=== PATIENT | female | born 1995 | race Caucasian/White ===

== ENCOUNTER → 2016-04-22 | Outpatient (CLI) | payer OTHER ==
[~2016-04-22] MED LIST: ACETAMINOPHEN-H1 TA2 PO; BIRTH CONTROL1 EAC1 PO; HYDROCODONE BIT1 T11 PO; NKHM PO; NORCO 325 MG-51 TAB PO; VYVANSE30 MG PO; ZOFRAN ODT4 MG SL
[2016-04-22 11:05] LABS: BASO % 0.1 % (0.0-1.0); EOS # 0.1 10*3/uL (0.0-0.4); EOS % 1.3 % (1.0-4.0); HEMATOCRIT 42.6 % (37.0-47.0); HEMOGLOBIN 13.8 g/dl (12.0-16.0); LYMPH # 1.2 10*3/uL (1.3-4.4); LYMPH % 17.1 % (27.0-41.0); MEAN CELL VOLUME 88.4 fl (81.0-99.0); MEAN CORPUSCULAR HGB 28.6 pg (27.0-31.0); MEAN CORPUSCULAR HGB CONC 32.4 g/dl (33.0-37.0); MONO # 0.5 10*3/uL (0.1-1.0); MONO % 7.4 % (3.0-9.0); NEUT # 5.3 10*3/uL (2.3-7.9); NEUT % 73.8 % (47.0-73.0); PLATELET COUNT AUTOMATED 194 10*3/uL (130-400); RED BLOOD COUNT 4.82 10*6/uL (4.10-5.10); RED CELL DISTRI WIDTH 12.6 % (0-14.5); WHITE BLOOD COUNT 7.1 10*3/uL (4.8-10.8)
[2016-04-22 11:39] LABS: ALKALINE PHOSPHATASE 72 U/L (45-117); BILIRUBIN, TOTAL 0.5 mg/dl (0.2-1.0); BUN 11 mg/dl (7-24); CARBON DIOXIDE 26 mmol/L (21-32); CHLORIDE 108 mmol/L (98-107); EST GLOM FILT AFRICAN AMERICAN > 60 ml/min; FREE T4 1.04 ng/dl (0.76-1.46); GLUCOSE 82 mg/dL (65-99); POTASSIUM 4.2 mmol/L (3.5-5.1); SGOT/AST 13 IU/L (3-35); SGPT/ALT 16 U/L (12-78); SODIUM 142 mmol/L (136-145); TOTAL PROTEIN 7.9 gm/dL (6.4-8.2)
== END | disposition home or self-care (01) ==
LOC: LAB 10:32
PROVIDERS: Psychiatry & Neurology Psychiatry
DX: D64.9 Anemia, unspecified (principal); F41.9 Anxiety disorder, unspecified; R53.83 Other fatigue; E55.9 Vitamin D deficiency, unspecified

== ENCOUNTER → 2016-06-16 | Day surgery (SDC) | payer OTHER ==
[2016-06-13 09:53] LABS: BASO % 0.2 % (0.0-1.0); EOS # 0.2 10*3/uL (0.0-0.4); EOS % 3.8 % (1.0-4.0); HEMATOCRIT 40.1 % (37.0-47.0); HEMOGLOBIN 13.1 g/dl (12.0-16.0); LYMPH % 35.5 % (27.0-41.0); MEAN CELL VOLUME 88.3 fl (81.0-99.0); MEAN CORPUSCULAR HGB 28.9 pg (27.0-31.0); MEAN CORPUSCULAR HGB CONC 32.7 g/dl (33.0-37.0); MEAN PLATELET VOLUME 10.2 fl (9.6-12.3); MONO # 0.4 10*3/uL (0.1-1.0); MONO % 7.7 % (3.0-9.0); NEUT # 2.9 10*3/uL (2.3-7.9); NEUT % 52.6 % (47.0-73.0); PLATELET COUNT AUTOMATED 179 10*3/uL (130-400); RED BLOOD COUNT 4.54 10*6/uL (4.10-5.10); RED CELL DISTRI WIDTH 12.8 % (0-14.5); WHITE BLOOD COUNT 5.5 10*3/uL (4.8-10.8)
[2016-06-13 10:15] LABS: BUN 10 mg/dl (7-24); CARBON DIOXIDE 25 mmol/L (21-32); CHLORIDE 109 mmol/L (98-107); EST GLOM FILT AFRICAN AMERICAN > 60 ml/min; GLUCOSE 74 mg/dL (65-99); POTASSIUM 3.7 mmol/L (3.5-5.1); SODIUM 144 mmol/L (136-145)
[2016-06-13 10:24] LABS: PROTHROMBIN TIME 10.7 SECONDS (9.0-12.4)
[~2016-06-16] VITALS: Ht 170.1 cm; Wt 59.0 kg
--- NOTE | ~2016-06-16 | O ---
[place], [place] OPERATIVE NOTE NAME: KEO RIVERS UNIT #: [id number] ROOM: DOCTOR: DAVID SAENZ MD BIRTHDATE: [birth year] DOS: 06/16/2016 PREOPERATIVE DIAGNOSIS: Pilonidal cyst. POSTOPERATIVE DIAGNOSIS: Pilonidal cyst. PROCEDURE: Excision of pilonidal cyst. SURGEON: David Saenz MD REEL WINDER: COBY. ANESTHESIA: General with endotracheal intubation. INDICATIONS: This is a 21-year-old lady with a history of symptomatic pilonidal cyst who was here for the above-mentioned procedure. The procedure and its complications were explained to the patient in detail preoperatively. Complications that were discussed included, but were not limited to bleeding, infection, hematoma/seroma/abscess formation, prolonged postoperative pain, and recurrence. She agreed to proceed. DESCRIPTION OF PROCEDURE: After identifying the patient, the patient was brought to the operating suite and laid in the supine position. After induction of general anesthesia, the parts were then painted and draped in the usual sterile fashion after the patient was put in a prone position. A time-out procedure was called. An incision in an elliptical fashion was marked around the area of the opening in the cyst. The skin and the subcutaneous tissue were incised and the entire cyst was excised, which was right up to the bone. After it was excised, it was sent for histopathological diagnosis. Hemostasis was achieved with the help of electrocautery and saline was used for irrigation. Thereafter, the subcutaneous tissue was approximated with the help of 3-0 Vicryl in an interrupted fashion and the skin edges were approximate with the help of 3-0 silk in a mattress fashion interrupted. A 1% lidocaine was used for local anesthesia. Dressing was placed. The patient was then turned in the supine position and extubated uneventfully and brought back to the recovery room in a stable fashion. There were no complications. Dr. David Saenz, the attending surgeon, was present throughout the operating case. [place], [place] OPERATIVE NOTE NAME: KEO RIVERS UNIT #: [id number] ROOM: DOCTOR: DAVID SAENZ MD BIRTHDATE: [birth year] David Saenz MD CM:IGNACIAORD:OPERATIVE NOTE [id number] DAVID SAENZ MD 06/16/16 1043 interface
[2016-06-16 07:41] LABS: BASO % 0.2 % (0.0-1.0); EOS # 0.2 10*3/uL (0.0-0.4); EOS % 2.4 % (1.0-4.0); HEMATOCRIT 40.8 % (37.0-47.0); HEMOGLOBIN 13.6 g/dl (12.0-16.0); LYMPH # 1.8 10*3/uL (1.3-4.4); LYMPH % 28.2 % (27.0-41.0); MEAN CELL VOLUME 86.6 fl (81.0-99.0); MEAN CORPUSCULAR HGB 28.9 pg (27.0-31.0); MEAN CORPUSCULAR HGB CONC 33.3 g/dl (33.0-37.0); MEAN PLATELET VOLUME 10.2 fl (9.6-12.3); MONO # 0.5 10*3/uL (0.1-1.0); MONO % 8.3 % (3.0-9.0); NEUT # 3.8 10*3/uL (2.3-7.9); NEUT % 60.7 % (47.0-73.0); PLATELET COUNT AUTOMATED 179 10*3/uL (130-400); RED BLOOD COUNT 4.71 10*6/uL (4.10-5.10); RED CELL DISTRI WIDTH 12.7 % (0-14.5); WHITE BLOOD COUNT 6.3 10*3/uL (4.8-10.8)
[2016-06-16 08:05] LABS: BUN 11 mg/dl (7-24); CARBON DIOXIDE 25 mmol/L (21-32); CHLORIDE 105 mmol/L (98-107); EST GLOM FILT AFRICAN AMERICAN > 60 ml/min; GLUCOSE 96 mg/dL (65-99); POTASSIUM 3.8 mmol/L (3.5-5.1); SODIUM 141 mmol/L (136-145)
[2016-06-16 08:11] LABS: PROTHROMBIN TIME 10.7 SECONDS (9.0-12.4)
== END | disposition home or self-care (01) ==
LOC: SDC 06-12 08:00
PROVIDERS: Surgery
DX: L05.91 Pilonidal cyst without abscess (principal); J45.909 Unspecified asthma, uncomplicated; K21.9 Gastro-esophageal reflux disease without esophagitis; Z87.891 Personal history of nicotine dependence; F32.9 Major depressive disorder, single episode, unspecified; F98.8 Other specified behavioral and emotional disorders with onset usually occurring in childhood and adolescence; Z80.1 Family history of malignant neoplasm of trachea, bronchus and lung

== ENCOUNTER 2017-02-04 11:27 | Emergency (ER) | payer OTHER ==
[~2017-02-04] VITALS: Ht 167.6 cm; Wt 59.0 kg
== END 2017-02-04 13:45 | disposition home or self-care (01) ==
LOC: ED 11:27
DX: S93.602A Unspecified sprain of left foot, initial encounter (principal); F17.200 Nicotine dependence, unspecified, uncomplicated; Z79.899 Other long term (current) drug therapy; W10.9XXA Fall (on) (from) unspecified stairs and steps, initial encounter; Y93.89 Activity, other specified; Y92.89 Other specified places as the place of occurrence of the external cause; Y99.9 Unspecified external cause status

== ENCOUNTER 2017-11-26 16:03 | Emergency (ER) | payer OTHER ==
[~2017-11-26] VITALS: Ht 167.6 cm; Wt 63.5 kg
== END 2017-11-26 17:53 | disposition left against medical advice (07) ==
LOC: ED 16:03
DX: L03.031 Cellulitis of right toe (principal); Z79.899 Other long term (current) drug therapy

== ENCOUNTER → 2018-05-21 | Outpatient (CLI) | payer OTHER ==
[~2018-05-21] MED LIST changes: +Percocet 325 MG1 TAB PO
[2018-05-21 11:43] LABS: BASO % 0.2 % (0.0-1.0); EOS # 0.2 10*3/uL (0.0-0.4); EOS % 4.7 % (1.0-4.0); HEMOGLOBIN 13.2 g/dl (12.0-16.0); LYMPH # 1.3 10*3/uL (1.3-4.4); MEAN CELL VOLUME 88.9 fl (81.0-99.0); MEAN CORPUSCULAR HGB 28.6 pg (27.0-31.0); MEAN CORPUSCULAR HGB CONC 32.2 g/dl (33.0-37.0); MEAN PLATELET VOLUME 9.8 fl (9.6-12.3); MONO # 0.4 10*3/uL (0.1-1.0); NEUT # 2.9 10*3/uL (2.3-7.9); NEUT % 59.9 % (47.0-73.0); PLATELET COUNT AUTOMATED 172 10*3/uL (130-400); RED BLOOD COUNT 4.61 10*6/uL (4.10-5.10); RED CELL DISTRI WIDTH 12.3 % (0-14.5); WHITE BLOOD COUNT 4.9 10*3/uL (4.8-10.8)
[2018-05-21 11:48] LABS: BUN 9 mg/dl (7-24); CHLORIDE 106 mmol/L (98-107); CREATININE 0.71 mg/dL (0.55-1.02); POTASSIUM 4.2 mmol/L (3.5-5.1); SODIUM 139 mmol/L (136-145)
[2018-05-21 11:56] LABS: BILIRUBIN NEGATIVE (NEGATIVE); BLOOD 2+ (NEGATIVE); CLARITY CLEAR (CLEAR); COLOR YELLOW (YELLOW); GLUCOSE NEGATIVE (NEGATIVE); KETONE NEGATIVE (NEGATIVE); LEUKO ESTERASE NEGATIVE (NEGATIVE); NITRITE NEGATIVE (NEGATIVE); PH 7.5 (5.0-9.0); UROBILINOGEN 0.2 E.U./dl (0.2-1.0)
== END | disposition home or self-care (01) ==
LOC: LAB 10:20
PROVIDERS: Surgery
DX: L05.91 Pilonidal cyst without abscess (principal)

== ENCOUNTER → 2018-05-27 | Day surgery (SDC) | payer OTHER ==
[2018-05-21 10:50] VITALS: BP 126/67
[2018-05-27] VITALS (8 sets, daily range): BP systolic 94–115; BP diastolic 53–66
[~2018-05-27] VITALS: Ht 167.6 cm; Wt 74.8 kg
--- NOTE | ~2018-05-27 | O ---
[place], [place] OPERATIVE NOTE NAME: KEO RIEVRS UNIT #: [id number] ROOM: DOCTOR: DAVID SAENZ MD BIRTHDATE: [birth year] DOS: 05/27/2018 PREOPERATIVE DIAGNOSIS: Recurrent pilonidal cyst. POSTOPERATIVE DIAGNOSIS: Recurrent pilonidal cyst. PROCEDURE: Excision of recurrent pilonidal cyst. SURGEON: David Saenz MD SOLAR RESOURCE ASSESSOR: COBY. ANESTHESIA: General with endotracheal intubation. INDICATIONS: This is a 23-year-old lady here for excision of a recurrent and symptomatic pilonidal cyst. The procedure and its complications were explained to the patient in detail preoperatively. Complications that were discussed included but were not limited to bleeding, infection, recurrence, prolonged postoperative pain, and damage to lying vital structures. She agreed to proceed. DESCRIPTION OF PROCEDURE: After identifying the patient, the patient was brought to the operating suite and laid in the supine position. After induction of general anesthesia, the patient was placed in a prone position and the parts were then painted and draped in the usual sterile fashion. Timeout procedure was called. Incision in an elliptical fashion was marked around the previous incisional scar that was found to be well healed. The skin and the subcutaneous tissue were incised and the scar and the underlying tissue was excised in its entirety and sent for histopathological diagnosis. Thereafter, saline was used for irrigation and the subcutaneous tissue was approximated in an interrupted fashion with 0 Vicryl. The edges of the skin were infiltrated with 1% plain lidocaine and approximated with the help of 0 Prolene in an interrupted mattress fashion. Dressing was placed. The patient was placed in a supine position, extubated uneventfully and brought back to the recovery room in stable fashion. There were no complications. Dr. David Saenz, the attending surgeon, was present throughout the operating case. [place], [place] OPERATIVE NOTE NAME: KEO RIVERS [place] UNIT #: [id number] ROOM: DOCTOR: ADVID SAENZ MD BIRTHDATE: [birth year] David Saenz MD CM:OPRECORD:OPERATIVE NOTE 0 DAVID SAENZ MD 05/27/18840 interface
== END | disposition home or self-care (01) ==
LOC: SDC 05-20 11:00
DX: L05.91 Pilonidal cyst without abscess (principal); J45.909 Unspecified asthma, uncomplicated; F41.9 Anxiety disorder, unspecified; F32.9 Major depressive disorder, single episode, unspecified; Z79.899 Other long term (current) drug therapy; Z80.1 Family history of malignant neoplasm of trachea, bronchus and lung; Z87.891 Personal history of nicotine dependence; Z98.890 Other specified postprocedural states; Z72.89 Other problems related to lifestyle; Z82.49 Family history of ischemic heart disease and other diseases of the circulatory system

== ENCOUNTER → 2020-07-24 | Outpatient (CLI) | payer OTHER ==
[2020-07-24 12:58] LABS: HEMATOCRIT 43.2 % (37.0-47.0); MEAN CELL VOLUME 85.4 fl (81.0-99.0); MEAN CORPUSCULAR HGB 28.3 pg (27.0-31.0); MEAN CORPUSCULAR HGB CONC 33.1 g/dl (33.0-37.0); MEAN PLATELET VOLUME 9.4 fl (9.6-12.3); RED BLOOD COUNT 5.06 10*6/uL (4.10-5.10); RED CELL DISTRI WIDTH 12.4 % (0-14.5); WHITE BLOOD COUNT 7.5 10*3/uL (4.8-10.8)
[2020-07-24 13:31] LABS: ALBUMIN 4.2 gm/dl (3.1-4.5); BUN 8 mg/dl (7-24); CHLORIDE 109 mmol/L (98-107); CHOLESTEROL 184 mg/dL (<200); CREATININE 0.69 mg/dL (0.55-1.02); POTASSIUM 3.7 mmol/L (3.5-5.1); SGOT/AST 9 IU/L (3-35); SGPT/ALT 14 U/L (12-78); SODIUM 139 mmol/L (136-145); TOTAL PROTEIN 8.3 gm/dL (6.4-8.2); TRIGLYCERIDES 120 mg/dl (<150); VLDL CHOLESTEROL 24 mg/dL (6-40)
[2020-07-24 13:36] LABS: ALKALINE PHOSPHATASE 88 U/L (45-117); CPK 63 U/L (26-192); HDL CHOLESTEROL 53 mg/dl (40-60); LDL CHOLESTEROL 107 mg/dL (9-159)
[2020-07-24 13:48] LABS: VITAMIN D, 25-HYDROXY 24.9 ng/mL (30-100)
[2020-07-25 08:07] LABS: HEP B CORE AB, IGM Negative (Negative); HEPATITIS B SURFACE AG Negative (Negative); HEPATITIS C VIRUS ANTIBODY <0.1 s/co (0.0-0.9); RHEUMATOID ARTHRITIS FACTOR <10.0 IU/mL (0.0-13.9)
[2020-07-28 03:06] LABS: TESTOSTERONE FREE, (DIRECT) 1.8 pg/mL (0.0-4.2)
== END | disposition home or self-care (01) ==
LOC: LAB 12:35
PROVIDERS: ATTEND Family Medicine
DX: I10 Essential (primary) hypertension (principal); E55.9 Vitamin D deficiency, unspecified; E74.9 Disorder of carbohydrate metabolism, unspecified; R53.83 Other fatigue; M25.50 Pain in unspecified joint; N92.6 Irregular menstruation, unspecified

== ENCOUNTER → 2021-01-01 | Outpatient (CLI) | payer OTHER ==
[~2021-01-01] MED LIST changes: +COLACE100 MG PO; +PERCOCET 5-3251 EACH PO; +ZOFRAN4 MG PO
== END | disposition home or self-care (01) ==
LOC: COVID19 16:05
PROVIDERS: ATTEND Internal Medicine
DX: Z20.822 Contact with and (suspected) exposure to COVID-19 (principal)

== ENCOUNTER → 2021-01-09 | Outpatient (CLI) | payer OTHER | END | disposition home or self-care (01) | LOC: COVID19 16:09 | PROVIDERS: ATTEND Internal Medicine | DX: Z11.52 Encounter for screening for COVID-19 (principal) ==

== ENCOUNTER → 2022-01-27 | Outpatient (CLI) | payer OTHER ==
[2022-01-27 11:36] LABS: BILIRUBIN Negative (Negative); BLOOD Negative (Negative); CLARITY Clear (Clear); COLOR Yellow (Yellow); GLUCOSE Negative (Negative); KETONE Negative (Negative); LEUKO ESTERASE Negative (Negative); NITRITE Negative (Negative); SPECIFIC GRAVITY 1.015 (1.001-1.030); UROBILINOGEN 0.2 E.U./dl (0.0-1.0)
[2022-01-27 11:36] LABS: BASO % 0.2 % (0.0-1.0); EOS # 0.1 10*3/uL (0.0-0.4); EOS % 1.5 % (1.0-4.0); HEMATOCRIT 42.6 % (37.0-47.0); LYMPH # 1.3 10*3/uL (1.3-4.4); LYMPH % 25.3 % (27.0-41.0); MEAN CELL VOLUME 87.8 fl (81.0-99.0); MEAN CORPUSCULAR HGB CONC 31.9 g/dl (33.0-37.0); MEAN PLATELET VOLUME 9.5 fl (9.6-12.3); MONO # 0.3 10*3/uL (0.1-1.0); MONO % 4.8 % (3.0-9.0); NEUT # 3.5 10*3/uL (2.3-7.9); PLATELET COUNT AUTOMATED 310 10*3/uL (130-400); RED BLOOD COUNT 4.85 10*6/uL (4.10-5.10); RED CELL DISTRI WIDTH 13.1 % (0-14.5); WHITE BLOOD COUNT 5.2 10*3/uL (4.8-10.8)
[2022-01-27 11:58] LABS: ALKALINE PHOSPHATASE 81 U/L (45-117); BUN 5 mg/dl (7-24); CHLORIDE 109 mmol/L (98-107); CHOLESTEROL 172 mg/dL (<200); CREATININE 0.77 mg/dL (0.55-1.02); GAMMA GLUTAMYL TRANSPEPTIDASE 10 U/L (5-55); IRON 31 ug/dL (50-170); LDL CHOLESTEROL 83 mg/dL (9-159); POTASSIUM 4.2 mmol/L (3.5-5.1); SGOT/AST 12 IU/L (3-35); SGPT/ALT 16 U/L (12-78); SODIUM 141 mmol/L (136-145); THYROXINE (T4) TOTAL 12.2 ug/dl (4.8-13.9); TOTAL PROTEIN 7.8 gm/dL (6.4-8.2); TRIGLYCERIDES 87 mg/dl (<150); URIC ACID 4.8 mg/dL (2.6-6.0)
[2022-01-27 12:00] LABS: T3 UPTAKE 32 % (31-39)
[2022-01-27 12:06] LABS: B-hCG (QUALITATIVE) NEGATIVE (NEGATIVE)
[2022-01-27 12:13] LABS: RBC 0-2 rbc/hpf (0-2); WBC 0-2 wbc/hpf (0-5)
[2022-01-27 12:32] LABS: BETA-HCG, QUANT < 1.0 mIU/mL (1-3)
[2022-01-27 13:04] LABS: FERRITIN 15.9 ng/mL (10.0-291.0); VITAMIN D, 25-HYDROXY 23.8 ng/mL (30-100)
[2022-01-28 04:06] LABS: FOLLICLE STIMULATING HORMONE 10.8 mIU/mL (.); LUTEINIZING HORMONE 16.3 mIU/mL (.); PROGESTERONE 0.3 ng/mL (.); PROLACTIN 15.2 ng/mL (4.8-23.3); RHEUMATOID FACTOR <10.0 IU/mL (<14.0); SEX HORMONE BINDING GLOBULIN 32.1 nmol/L (24.6-122.0)
[2022-01-28 12:07] LABS: ANTI-DSDNA ANTIBODIES <1 IU/mL (0-9)
[2022-01-29 06:07] LABS: INSULIN-LIKE GROWTH FACTOR-1 138 ng/mL (91-308)
[2022-01-30 22:05] LABS: TESTOSTERONE FREE, (DIRECT) 1.9 pg/mL (0.0-4.2)
[2022-02-01 16:07] LABS: DEHYDROEPIANDROSTERONE 367 ng/dL (31-701)
== END | disposition home or self-care (01) ==
LOC: LAB 11:00
PROVIDERS: ATTEND Family Medicine
DX: E78.5 Hyperlipidemia, unspecified (principal); E55.9 Vitamin D deficiency, unspecified; R79.89 Other specified abnormal findings of blood chemistry; R53.83 Other fatigue; R74.8 Abnormal levels of other serum enzymes